=== PATIENT | male | born 1995 | race Caucasian/White ===

== ENCOUNTER 2017-11-15 08:06 | Emergency (ER) | payer OTHER ==
[2017-11-15 08:11] VITALS: RESP 18
--- NOTE | 2017-11-15 09:05 | XR ---
Left shoulder HISTORY: Trauma and pain 3 views of the left shoulder Bone mineralization, joint spaces and alignment are maintained. IMPRESSION: No fracture or dislocation. Follow-up as indicated.
--- NOTE | 2017-11-15 09:33 | ED ---
Upper Extremity HPI - General Chief Complaint: Extremity Injury, Upper Stated Complaint: Arm Injury Time Seen by Provider: 11/15/17 08:15 Source: patient, RN notes reviewed, old records reviewed Mode of arrival: ambulatory Limitations: no limitations - History of Present Illness Initial Comments: Patient is a 22-year-old male chief complaint of left shoulder injury. Pt slipped down approx 6 steps this morning and injured left shoulder while trying to catch himself. Denies any head or neck injury. He states that his back is OK and reports no significant pain. Patient reports pain with range of motion of the left shoulder. Denies peripheral paresthesias. - Related Data Home Medications Medication Instructions Recorded Confirmed Escitalopram [Lexapro] 10 mg PO DAILY 11/15/17 11/15/17 QUEtiapine [SEROquel] 50 mg PO HS 11/15/17 11/15/17 Previous Rx's Medication Instructions Recorded Ibuprofen [Motrin] 600 mg PO Q8HR PRN #20 tab 11/15/17 traMADol HCl [Ultram] 50 mg PO Q6HR PRN 3 Days #12 tab 11/15/17 Allergies Allergy/AdvReac Type Severity Reaction Status Date / Time No Known Allergies Allergy Verified 11/23/17 07:42 Review of Systems ROS Statement: Those systems with pertinent positive or pertinent negative responses have been documented in the HPI. ROS Other: All systems not noted in ROS Statement are negative. Past Medical History Past Medical History: No Reported History History of Any Multi-Drug Resistant Organisms: None Reported Past Surgical History: No Surgical Hx Reported Past Psychological History: Depression Smoking Status: Current every day smoker Past Alcohol Use History: None Reported Past Drug Use History: None Reported General Exam - General Exam Comments Initial Comments: This patient is a 22 year old male, no distress. Limitations: no limitations General appearance: alert, in no apparent distress Head exam: Present: atraumatic, normocephalic, normal inspection Eye exam: Present: normal appearance, PERRL, EOMI. Absent: scleral icterus, conjunctival injection, periorbital swelling ENT exam: Present: normal exam, mucous membranes moist Neck exam: Present: normal inspection. Absent: tenderness, meningismus, lymphadenopathy Respiratory exam: Present: normal lung sounds bilaterally. Absent: respiratory distress, wheezes, rales, rhonchi, stridor Cardiovascular Exam: Present: regular rate, normal rhythm, normal heart sounds. Absent: systolic murmur, diastolic murmur, rubs, gallop, clicks GI/Abdominal exam: Present: soft, normal bowel sounds. Absent: distended, tenderness, guarding, rebound, rigid Extremities exam: Present: normal inspection, normal capillary refill. Absent: tenderness, pedal edema, joint swelling, calf tenderness Left Shoulder Exam: Present: tenderness (Patient unable to abduct greaterthan 45 degrees and flex greater than 90 degrees. ), tenderness over AC joint. Absent: normal inspection, full ROM, abrasion, laceration Upper Arm exam: Present: normal inspection, full ROM Elbow exam: Present: normal inspection, full ROM Forearm Wrist exam: Present: normal inspection Hand Wrist exam: Present: normal inspection Neuro motor exam: Present: wrist extension intact Vascular: Present: vascular compromise Back exam: Present: normal inspection Neurological exam: Present: alert, oriented X3, CN II-XII intact Psychiatric exam: Present: normal affect, normal mood Skin exam: Present: warm, dry, intact, normal color. Absent: rash Course Vital Signs 11/15/17 11/15/17 08:08 09:34 Temperature 97.7 F 98 F Pulse Rate 95 84 Respiratory 18 18 Rate Blood Pressure 141/78 137/70 O2 Sat by Pulse 99 100 Oximetry Procedures - Orthopedic Splinting/Casting Injury #1 Side: left Upper Extremity Injury Location: shoulder Upper Extremity Immobilizer: sling/shoulder immobilizer Additional Comments: Patient is N/V intact. Medical Decision Making - Medical Decision Making Or pain after falling down the stairs. No other injury. X-ray shows no fracture. He does have limited range of motion. Concern for rotator cuff injury. Patient placed in a sling and pain medicine. Discussed appropriate follow up with orthopedic. - Radiology Data Radiology results: report reviewed Normal left shoulder xrays. Disposition Clinical Impression: Injury of left rotator cuff Disposition: HOME SELF-CARE Condition: Good Instructions: Rotator Cuff Injury (ED) Additional Instructions: Patient denies follow-up with primary care provider and safety specialist. Patient should remain in the sling to practice some range of motion to avoid frozen shoulder syndrome. Patient can take the pain medicine and anti- inflammatory medicine as prescribed. Recommended follow-up with orthopedic. Prescriptions: Ibuprofen [Motrin] 600 mg PO Q8HR PRN #20 tab PRN Reason: Pain traMADol HCl [Ultram] 50 mg PO Q6HR PRN 3 Days #12 tab PRN Reason: Pain Is patient prescribed a controlled substance at d/c from ED?: No When asked, does pt state using other controlled substances?: No If prescribed controlled substance>3 days was MAPS reviewed?: No Referrals: None,Stated [Primary Care Provider] - 1-2 days Randi Perez MD [REFERRING] - 1-2 days Jorge Merritt DO [Doctor of Osteopathic Medicine] - 1-2 days Time of Disposition: 09:31
[2017-11-15 09:40] VITALS: BP 137/70; PULSE 84; TEMP 98
== END 2017-11-15 09:35 | disposition home or self-care (01) ==
LOC: EC 08:06
DX: S46.002A Unspecified injury of muscle(s) and tendon(s) of the rotator cuff of left shoulder, initial encounter (principal); F32.9 Major depressive disorder, single episode, unspecified; F17.200 Nicotine dependence, unspecified, uncomplicated; Z79.899 Other long term (current) drug therapy; W10.9XXA Fall (on) (from) unspecified stairs and steps, initial encounter; Y92.009 Unspecified place in unspecified non-institutional (private) residence as the place of occurrence of the external cause
CPT/HCPCS: 99284

== ENCOUNTER 2017-11-23 07:39 | Emergency (ER) | payer OTHER ==
[2017-11-23 07:42] VITALS: BP 134/80; PULSE 102; RESP 20; TEMP 98
--- NOTE | 2017-11-23 08:36 | ED ---
Medical Clearance HPI - General Chief complaint: Medical Clearance Stated complaint: Shoulder Recheck Time Seen by Provider: 11/23/17 08:14 Source: patient, RN notes reviewed Mode of arrival: ambulatory - History of Present Illness Initial comments: Patient 22-year-old male presented to the emergency room today with a chief complaint of needing a work note to return to work. He does not that he was seen in the emergency room approximately week ago for an injury to the left shoulder. States is feeling better. States his family doctors out of town he still plans to follow up with him. He states he needs a note to return to work tomorrow. Patient denies any other bites or symptoms. Home medications: Home Medications Medication Instructions Recorded Confirmed Escitalopram [Lexapro] 10 mg PO DAILY 11/15/17 11/15/17 QUEtiapine [SEROquel] 50 mg PO HS 11/15/17 11/15/17 Previous Rx's Medication Instructions Recorded Ibuprofen [Motrin] 600 mg PO Q8HR PRN #20 tab 11/15/17 traMADol HCl [Ultram] 50 mg PO Q6HR PRN 3 Days #12 tab 11/15/17 Allergies/Adverse reactions: Allergies Allergy/AdvReac Type Severity Reaction Status Date / Time No Known Allergies Allergy Verified 11/23/17 07:42 Review of Systems ROS Statement: Those systems with pertinent positive or pertinent negative responses have been documented in the HPI. ROS Other: All systems not noted in ROS Statement are negative. Past Medical History Past Medical History: No Reported History History of Any Multi-Drug Resistant Organisms: None Reported Past Surgical History: No Surgical Hx Reported Past Psychological History: Depression Smoking Status: Current every day smoker Past Alcohol Use History: None Reported Past Drug Use History: None Reported General Exam - General Exam Comments Initial Comments: General: The patient is awake and alert, in no distress, and does not appear acutely ill. Neck: The neck is supple, there is no tenderness or JVD. Musculoskeletal: Normal appearance of the left shoulder. Full range motion. Sensation intact. Pulses equal bilaterally 2+. Strength 5/5 in all areas. Neurological: A&O x 3. CN II-XII intact, There are no obvious motor or sensory deficits. Coordination appears grossly intact. Speech is normal. Skin: Skin is warm and dry and no rashes or lesions are noted. Psychiatric: Normal mood and affect. Limitations: no limitations Course Vital Signs 11/23/17 07:41 Temperature 98.0 F Pulse Rate 102 H Respiratory 20 Rate Blood Pressure 134/80 O2 Sat by Pulse 99 Oximetry Medical Decision Making - Medical Decision Making Patient does continue to follow-up with family doctor and orthopedics as needed. Disposition Clinical Impression: Shoulder injury Disposition: HOME SELF-CARE Condition: Good Instructions: Rotator Cuff Injury (ED) Additional Instructions: Please continue to follow-up family doctor and orthopedics as discussed. Please return to emergency room for any other concerns Is patient prescribed a controlled substance at d/c from ED?: No Referrals: Bhargav Gonzales DO [Primary Care Provider] - 1-2 days Time of Disposition: 08:35
== END 2017-11-23 08:47 | disposition home or self-care (01) ==
LOC: EC 07:39
DX: S49.92XD Unspecified injury of left shoulder and upper arm, subsequent encounter (principal); F32.9 Major depressive disorder, single episode, unspecified; F17.200 Nicotine dependence, unspecified, uncomplicated; Z79.899 Other long term (current) drug therapy
CPT/HCPCS: 99282

== ENCOUNTER 2018-05-16 20:53 | Emergency (ER) | payer OTHER ==
[2018-05-16 21:03] VITALS: BP 143/89; PULSE 80; RESP 18; TEMP 98.6
--- NOTE | 2018-05-16 22:48 | XR ---
EXAMINATION TYPE: XR chest 2V DATE OF EXAM: 05/16/2018 COMPARISON: NONE HISTORY: Chest pain TECHNIQUE: Frontal and lateral views of the chest are obtained. FINDINGS: Heart and mediastinum are normal. Lungs are clear. Diaphragm is normal. Bony thorax appear s normal. IMPRESSION: Normal chest
[2018-05-16] MEDS ORDERED: ASPIRIN 81 MG PO STA (23:47)
--- NOTE | 2018-05-16 23:49 | ED ---
General Adult HPI - General Chief complaint: Chest Pain Stated complaint: Mental Health Source: patient Mode of arrival: EMS Limitations: no limitations - History of Present Illness Initial comments: Dictation was produced using [employer] dictation software. please excuse any grammatical, word or spelling errors. Chief Complaint: 22-year-old male past medical history tobacco abuse and family history of cardiac disease presents with 10 minute episode of chest pain. History of Present Illness: Patient is 22-year-old male who was leaving work when he was at his car. He did experience a acute episode of substernal left- sided chest pain. There was associated diaphoresis. Patient states the pain did radiate slightly to his left shoulder and intrascapular area. Patient states the pain was severe and lasted for only 10 minutes and then completely subsided. He was concerned he is having a heart attack. He called EMS transferred to the emergency department. The ROS documented in this emergency department record has been reviewed and confirmed by me. Those systems with pertinent positive or negative responses have been documented in the HPI. All other systems are other negative and/or noncontributory. - Related Data Home Medications Medication Instructions Recorded Confirmed Escitalopram [Lexapro] 10 mg PO DAILY 11/15/17 05/16/18 QUEtiapine [SEROquel] 50 mg PO HS 11/15/17 05/16/18 QUEtiapine FUMARATE [SEROquel] 75 mg PO HS 05/16/18 05/16/18 Allergies Allergy/AdvReac Type Severity Reaction Status Date / Time No Known Allergies Allergy Verified 11/23/17 07:42 Review of Systems ROS Statement: Those systems with pertinent positive or pertinent negative responses have been documented in the HPI. ROS Other: All systems not noted in ROS Statement are negative. Past Medical History Past Medical History: No Reported History History of Any Multi-Drug Resistant Organisms: None Reported Past Surgical History: No Surgical Hx Reported Past Psychological History: Depression Smoking Status: Current every day smoker Past Alcohol Use History: None Reported Past Drug Use History: None Reported General Exam - General Exam Comments Initial Comments: PHYSICAL EXAM: General Impression: Alert and oriented x3, not in acute distress HEENT: Normocephalic atraumatic, extra-ocular movements intact, pupils equal and reactive to light bilaterally, mucous membranes moist. Cardiovascular: Heart regular rate and rhythm, S1&S2 audible, no murmurs, rubs or gallops Chest: Lungs clear to auscultation bilaterally, no rhonchi, no wheeze, no rales Abdomen: Bowel sounds present, abdomen soft, non-tender, non-distended, no organomegaly Musculoskeletal: Pulses present and equal in all extremities, no peripheral edema Motor: Power 5/5 bilaterally, no focal deficits noted Neurological: CN II-XII grossly intact, no focal motor or sensory deficits noted Skin: Intact with no visualized rashes Psych: Normal affect and mood Limitations: no limitations Course Vital Signs 05/16/18 20:59 Temperature 98.6 F Pulse Rate 80 Respiratory 18 Rate Blood Pressure 143/89 O2 Sat by Pulse 98 Oximetry Medical Decision Making - Medical Decision Making ED course: 22 y Old male with chief complaint of chest pain. Vital signs upon arrival are within acceptable limits. Physical examination is benign. Patient is well-appearing. EKGs benign however there are nonspecific findings. Pain is slightly reproducible with palpation to his left anterior chest. EKG did not show any signs to suggest acute coronary syndrome. Chest x-ray is unremarkable. At this point. Low clinical suspicion of acute coronary syndrome. Patient is mild risk. Told to follow up with primary care physician upon discharge. Patient given aspirin. Patient told to return if there is any worsening symptoms. Cardiac enzymes are negative. EKG Interpretation: A 12 lead EKG was obtained. It was interpreted by myself and attending physician. There is a P wave before every QRS complex. Rate is 76. Rhythm is normal sinus rhythm, HI interval 134, QS 96, QTC 450. QT is not prolonged. No ST segment depression or elevation. There are nonspecific T-wave changes in 3 and aVF.. Overall, this EKG is unremarkable - Lab Data Lab Results 05/16/18 Range/Units 22:45 Troponin I <0.012 (0.000-0.034) ng/mL Disposition Clinical Impression: Chest pain Disposition: HOME SELF-CARE Condition: Good Instructions: Chest Pain (ED) Is patient prescribed a controlled substance at d/c from ED?: No Referrals: Bhargav Gonzales DO [Primary Care Provider] - 1-2 days Time of Disposition: 23:48
[2018-05-16 23:58] LABS: Basophils % (A) 0 %; Eosinophils # (A) 0.1 k/uL (0-0.7); Eosinophils % (A) 2 %; HCT 46.6 % (39.0-53.0); HGB 16.1 gm/dL (13.0-17.5); Lymphocytes # (A) 3.4 k/uL (1.0-4.8); Lymphocytes % (A) 41 %; MCH 31.6 pg (25.0-35.0); MCHC 34.6 g/dL (31.0-37.0); MCV 91.5 fL (80.0-100.0); Monocytes # (A) 0.3 k/uL (0-1.0); Monocytes % (A) 4 %; Neutrophils # (A) 4.3 k/uL (1.3-7.7); Neutrophils % (A) 51 %; Platelet Count 186 k/uL (150-450); RBC 5.09 m/uL (4.30-5.90); RDW 12.9 % (11.5-15.5); WBC 8.4 k/uL (3.8-10.6)
== END 2018-05-16 23:57 | disposition home or self-care (01) ==
LOC: EC 20:53
DX: R07.9 Chest pain, unspecified (principal); F32.9 Major depressive disorder, single episode, unspecified; F17.200 Nicotine dependence, unspecified, uncomplicated; Z79.899 Other long term (current) drug therapy
CPT/HCPCS: 36415; 71046; 84484; 85025; 93005; 99285

== ENCOUNTER 2018-10-07 17:45 | Emergency (ER) | payer OTHER ==
[2018-10-07 17:59] LABS: Glucose,Whole Blood 318 mg/dL (75-99)
[2018-10-07] MEDS ORDERED: SODIUM CHLORIDE 0.9% 500 ML 500 ML IV STA (17:59)
[2018-10-07] MEDS ORDERED: SODIUM CHLORIDE 0.9% 1,000 ML IV STA ×2 (17:59)
--- NOTE | 2018-10-07 18:06 | ED ---
Recheck HPI - General Chief Complaint: Recheck/Abnormal Lab/Rx Stated Complaint: ABNORMAL LABS Time Seen by Provider: 10/07/18 17:58 Source: patient, RN notes reviewed, old records reviewed Mode of arrival: ambulatory Limitations: no limitations - History of Present Illness Initial Comments: This is a 23-year-old male the ER for evaluation. Patient resents today for evaluation regarding abnormal lab tests. Patient's son have abnormal blood sugar. Elevated blood sugar. Patient denies any symptoms of thirst or increased urination. Denies any pain no shortness breath or chest pain no bowel pain. No recent change in medications he does admit to some recent nausea no vomiting with diarrhea Complaint: abnormal lab (Elevated blood sugar) -: unknown Returns Today for: Called Because of Abnormal Lab/Test Symptoms Since Prior Visit: no new symptoms Context: called for abnormal lab result Associated Symptoms: none - Related Data Home Medications Medication Instructions Recorded Confirmed Escitalopram [Lexapro] 10 mg PO HS 11/15/17 10/07/18 QUEtiapine [SEROquel] 50 mg PO HS 11/15/17 10/07/18 QUEtiapine FUMARATE [SEROquel] 75 mg PO HS 05/16/18 10/07/18 Previous Rx's Medication Instructions Recorded metFORMIN HCL [Glucophage] 500 mg PO BID #60 tab 10/07/18 Allergies Allergy/AdvReac Type Severity Reaction Status Date / Time No Known Allergies Allergy Verified 10/07/18 18:07 Review of Systems ROS Statement: Those systems with pertinent positive or pertinent negative responses have been documented in the HPI. ROS Other: All systems not noted in ROS Statement are negative. Past Medical History Past Medical History: No Reported History History of Any Multi-Drug Resistant Organisms: None Reported Past Surgical History: No Surgical Hx Reported Past Psychological History: Anxiety, Depression Smoking Status: Current every day smoker Past Alcohol Use History: None Reported Past Drug Use History: None Reported General Exam Limitations: no limitations General appearance: alert, in no apparent distress Head exam: Present: atraumatic, normocephalic, normal inspection Eye exam: Present: normal appearance, PERRL, EOMI. Absent: scleral icterus, conjunctival injection, periorbital swelling ENT exam: Present: normal exam, mucous membranes moist Neck exam: Present: normal inspection. Absent: tenderness, meningismus, lymphadenopathy Respiratory exam: Present: normal lung sounds bilaterally. Absent: respiratory distress, wheezes, rales, rhonchi, stridor Cardiovascular Exam: Present: regular rate, normal rhythm, normal heart sounds. Absent: systolic murmur, diastolic murmur, rubs, gallop, clicks GI/Abdominal exam: Present: soft, normal bowel sounds. Absent: distended, tenderness, guarding, rebound, rigid Extremities exam: Present: normal inspection, full ROM, normal capillary refill. Absent: tenderness, pedal edema, joint swelling, calf tenderness Back exam: Present: normal inspection Neurological exam: Present: alert, oriented X3, CN II-XII intact Psychiatric exam: Present: normal affect, normal mood Skin exam: Present: warm, dry, intact, normal color. Absent: rash Course Vital Signs 10/07/18 17:50 Temperature 99.0 F Pulse Rate 98 Respiratory 18 Rate Blood Pressure 150/94 O2 Sat by Pulse 96 Oximetry - Reevaluation(s) Reevaluation #1: 10/07/18 18:32 Medical record reviewed Reevaluation #2: 10/07/18 19:14 no acute distress, drinking appropriately. Encouraged to increase fluid intake Medical Decision Making - Medical Decision Making 23 male the ER for evaluation. Diagnoses diabetes high blood pressure. given adequate resuscitation here in the ER, to be discharged home to follow-up with primary care - Lab Data Result diagrams: 10/07/18 18:11 10/07/18 18:11 Lab Results 10/07/18 10/07/18 10/07/18 Range/Units 17:56 18:11 18:11 WBC 5.1 (3.8-10.6) k/uL RBC 4.92 (4.30-5.90) m/uL Hgb 15.2 (13.0-17.5) gm/dL Hct 44.6 (39.0-53.0) % MCV 90.5 (80.0-100.0) fL MCH 30.9 (25.0-35.0) pg MCHC 34.1 (31.0-37.0) g/dL RDW 14.4 (11.5-15.5) % Plt Count 174 (150-450) k/uL Neutrophils % 51 % Lymphocytes % 40 % Monocytes % 4 % Eosinophils % 3 % Basophils % 0 % Neutrophils # 2.6 (1.3-7.7) k/uL Lymphocytes # 2.1 (1.0-4.8) k/uL Monocytes # 0.2 (0-1.0) k/uL Eosinophils # 0.1 (0-0.7) k/uL Basophils # 0.0 (0-0.2) k/uL Sodium 139 (137-145) mmol/L Potassium 4.5 (3.5-5.1) mmol/L Chloride 107 (98-107) mmol/L Carbon Dioxide 23 (22-30) mmol/L Anion Gap 9 mmol/L BUN 12 (9-20) mg/dL Creatinine 0.43 L (0.66-1.25) mg/dL Est GFR (CKD-EPI)AfAm >90 (>60 ml/min/1.73 sqM) Est GFR (CKD-EPI)NonAf >90 (>60 ml/min/1.73 sqM) Glucose 320 H (74-99) mg/dL POC Glucose (mg/dL) 318 H (75-99) mg/dL POC Glu [employer] ID Dharmesh Zhou Calcium 9.8 (8.4-10.2) mg/dL Phosphorus 2.8 (2.5-4.5) mg/dL Magnesium 1.8 (1.6-2.3) mg/dL Total Bilirubin 0.6 (0.2-1.3) mg/dL AST 46 (17-59) U/L ALT 87 H (21-72) U/L Alkaline Phosphatase 46 (38-126) U/L Total Protein 7.1 (6.3-8.2) g/dL Albumin 4.3 (3.5-5.0) g/dL Urine Color Urine Appearance (Clear) Urine pH (5.0-8.0) Ur Specific [place] (1.001-1.035) Urine Protein (Negative) Urine Glucose (UA) (Negative) Urine Ketones (Negative) Urine Blood (Negative) Urine Nitrite (Negative) Urine Bilirubin (Negative) Urine Urobilinogen (<2.0) mg/dL Ur Leukocyte Esterase (Negative) Acetone, Qual Negative (Negative) 10/07/18 Range/Units 18:11 WBC (3.8-10.6) k/uL RBC (4.30-5.90) m/uL Hgb (13.0-17.5) gm/dL Hct (39.0-53.0) % MCV (80.0-100.0) fL MCH (25.0-35.0) pg MCHC (31.0-37.0) g/dL RDW (11.5-15.5) % Plt Count (150-450) k/uL Neutrophils % % Lymphocytes % % Monocytes % % Eosinophils % % Basophils % % Neutrophils # (1.3-7.7) k/uL Lymphocytes # (1.0-4.8) k/uL Monocytes # (0-1.0) k/uL Eosinophils # (0-0.7) k/uL Basophils # (0-0.2) k/uL Sodium (137-145) mmol/L Potassium (3.5-5.1) mmol/L Chloride (98-107) mmol/L Carbon Dioxide (22-30) mmol/L Anion Gap mmol/L BUN (9-20) mg/dL Creatinine (0.66-1.25) mg/dL Est GFR (CKD-EPI)AfAm (>60 ml/min/1.73 sqM) Est GFR (CKD-EPI)NonAf (>60 ml/min/1.73 sqM) Glucose (74-99) mg/dL POC Glucose (mg/dL) (75-99) mg/dL POC Glu [employer]ter ID Calcium (8.4-10.2) mg/dL Phosphorus (2.5-4.5) mg/dL Magnesium (1.6-2.3) mg/dL Total Bilirubin (0.2-1.3) mg/dL AST (17-59) U/L ALT (21-72) U/L Alkaline Phosphatase (38-126) U/L Total Protein (6.3-8.2) g/dL Albumin (3.5-5.0) g/dL Urine Color Light Yellow Urine Appearance Clear (Clear) Urine pH 6.5 (5.0-8.0) Ur Specific [place] 1.025 (1.001-1.035) Urine Protein Negative (Negative) Urine Glucose (UA) 4+ H (Negative) Urine Ketones Negative (Negative) Urine Blood Negative (Negative) Urine Nitrite Negative (Negative) Urine Bilirubin Negative (Negative) Urine Urobilinogen <2.0 (<2.0) mg/dL Ur Leukocyte Esterase Negative (Negative) Acetone, Qual (Negative) - EKG Data -: EKG Interpreted by Me (EKG shows normal sinus rhythm rate of 90, MO 140, QRS 06, QTc 427) Disposition Clinical Impression: Newly diagnosed diabetes, Hyperglycemia Disposition: HOME SELF-CARE Condition: Good Instructions (If sedation given, give patient instructions): Type 2 Diabetes in Adults: New Diagnosis (ED) Prescriptions: metFORMIN HCL [Glucophage] 500 mg PO BID #60 tab Is patient prescribed a controlled substance at d/c from ED?: No Referrals: Bhargav Gonzales DO [Primary Care Provider] - 1-2 days
[2018-10-07 18:23] LABS: Basophils % (A) 0 %; Eosinophils # (A) 0.1 k/uL (0-0.7); Eosinophils % (A) 3 %; HCT 44.6 % (39.0-53.0); HGB 15.2 gm/dL (13.0-17.5); Lymphocytes # (A) 2.1 k/uL (1.0-4.8); Lymphocytes % (A) 40 %; MCH 30.9 pg (25.0-35.0); MCHC 34.1 g/dL (31.0-37.0); MCV 90.5 fL (80.0-100.0); Mean Platelet Volume 8.3; Monocytes # (A) 0.2 k/uL (0-1.0); Monocytes % (A) 4 %; Neutrophils # (A) 2.6 k/uL (1.3-7.7); Neutrophils % (A) 51 %; Platelet Count 174 k/uL (150-450); RBC 4.92 m/uL (4.30-5.90); RDW 14.4 % (11.5-15.5); WBC 5.1 k/uL (3.8-10.6)
[2018-10-07 18:27] LABS: Appearance,Urine Clear (Clear); Bilirubin,Urine Negative (Negative); Blood,Urine Negative (Negative); Color,Urine Light Yellow; Glucose,Urine (UA) 4+ (Negative); Ketones,Urine Negative (Negative); Leukocyte Esterase,Urine Negative (Negative); Nitrite,Urine Negative (Negative); PH, Urine 6.5 (5.0-8.0); Protein,Urine Negative (Negative); Specific Gravity,Urine 1.025 (1.001-1.035); Urobilinogen,Urine <2.0 mg/dL (<2.0)
[2018-10-07 19:00] LABS: ALT 87 U/L (21-72); AST 46 U/L (17-59); Albumin 4.3 g/dL (3.5-5.0); Alkaline Phosphatase 46 U/L (38-126); Anion Gap 9 mmol/L; Blood Urea Nitrogen 12 mg/dL (9-20); Calcium 9.8 mg/dL (8.4-10.2); Carbon Dioxide 23 mmol/L (22-30); Chloride 107 mmol/L (98-107); Glucose 320 mg/dL (74-99); Magnesium 1.8 mg/dL (1.6-2.3); Phosphorus 2.8 mg/dL (2.5-4.5); Potassium 4.5 mmol/L (3.5-5.1); Sodium 139 mmol/L (137-145); Total Bilirubin 0.6 mg/dL (0.2-1.3); Total Protein 7.1 g/dL (6.3-8.2)
[2018-10-07] MEDS ORDERED: metFORMIN 500 MG TAB PO STA (19:12)
[2018-10-07 20:23] VITALS: BP 121/85; PULSE 90; RESP 19; TEMP 98.3
== END 2018-10-07 20:22 | disposition home or self-care (01) ==
LOC: EC 17:45
DX: E11.65 Type 2 diabetes mellitus with hyperglycemia (principal); F32.9 Major depressive disorder, single episode, unspecified; F41.9 Anxiety disorder, unspecified; F17.200 Nicotine dependence, unspecified, uncomplicated; Z79.899 Other long term (current) drug therapy
CPT/HCPCS: 36415; 80053; 81003; 82009; 83036; 83735; 84100; 85025; 87086; 93005; 99284

== ENCOUNTER 2022-03-16 15:28 | Emergency (ER) | payer OTHER ==
[2022-03-16 15:39] VITALS: TEMP 98.4
--- NOTE | 2022-03-16 18:18 | ED ---
URI HPI - General Chief Complaint: Upper Respiratory Infection Stated Complaint: Body Aches,NVD,Dizzy Time Seen by Provider: 03/16/22 18:02 Source: patient Mode of arrival: ambulatory Limitations: no limitations - History of Present Illness Initial Comments: This 26-year-old male present with a complaint of a cough as well as some myalgias and fatigue. He denies any fevers or chills. He said some minor nasal congestion. He has slight headache. He denies any other complaints or modifying factors. Symptoms severity is moderate. He does utilize tobacco and has occasional cough but he states that it is somewhat worse currently. He denies any degree of production. He has occasional sore throat. No other complaints or modifying factor. - Related Data Home Medications Medication Instructions Recorded Confirmed Escitalopram [Lexapro] 10 mg PO HS 11/15/17 10/07/18 QUEtiapine [SEROquel] 50 mg PO HS 11/15/17 10/07/18 QUEtiapine FUMARATE [SEROquel] 75 mg PO HS 05/16/18 10/07/18 Previous Rx's Medication Instructions Recorded metFORMIN HCL [Glucophage] 500 mg PO BID #60 tab 10/07/18 Albuterol Sulfate [Albuterol 2 puff INHALATION Q4H PRN #8.5 gm 03/16/22 Sulfate Hfa] Azithromycin [Zithromax Z Pack] 1 tab PO DIRECTED #6 tab 03/16/22 predniSONE [Deltasone] 20 mg PO BID #10 tab 03/16/22 Allergies Allergy/AdvReac Type Severity Reaction Status Date / Time No Known Allergies Allergy Verified 03/16/22 15:39 Review of Systems ROS Statement: Those systems with pertinent positive or pertinent negative responses have been documented in the HPI. ROS Other: All systems not noted in ROS Statement are negative. Past Medical History Past Medical History: No Reported History History of Any Multi-Drug Resistant Organisms: None Reported Past Surgical History: No Surgical Hx Reported Past Psychological History: Anxiety, Depression Smoking Status: Current every day smoker Past Alcohol Use History: None Reported Past Drug Use History: None Reported General Exam - General Exam Comments Initial Comments: GENERAL: The patient is well nourished and well hydrated. VITAL SIGNS: Heart rate, blood pressure, respiratory rate reviewed as recorded in nurse's notes. EYES: Pupils are round and reactive. Extraocular movements are intact. No conjunctival / lid redness or swelling. ENT: No external evidence of injury, swelling, or ecchymosis. Airway is patent. Throat is clear. NECK: Nontender. No swelling or evidence of injury. No subcutaneous emphysema. Trachea is midline. No thyroid mass. HEART: Regular rate and rhythm. Good peripheral pulses. LUNGS/CHEST: Mild wheezing noted bilaterally. No ecchymosis, subcutaneous emphysema, or tenderness. ABDOMEN: Abdomen soft without tenderness. No palpable masses or organomegaly. No peritoneal signs. No abdominal wall swelling or ecchymosis. EXTREMITIES: No extremity tenderness. Normal muscle tone and function. No thoracolumbar tenderness. NEUROLOGIC: Sensation is grossly intact. Cranial nerve exam reveals face is symmetrical, tongue is midline, speech is clear. SKIN: No abrasions or ecchymosis is noted. No induration or masses noted. PSYCHIATRIC: Alert and oriented. Appropriate behavior and judgment. Limitations: no limitations Course Vital Signs 03/16/22 03/16/22 15:36 18:28 Temperature 98.4 F Pulse Rate 106 H 95 Respiratory 22 20 Rate Blood Pressure 142/93 131/89 O2 Sat by Pulse 99 98 Oximetry Medical Decision Making - Medical Decision Making The patient was seen and examined. His COVID-19 test is negative. He does have a degree of bronchospasm. It is felt as though he may have a degree of bronchitis. Antibiotics, steroids, and albuterol inhaler prescribed. Tylenol Motrin recommended. Return parameters are discussed. Close Follow-up recommended. - Lab Data Lab Results 03/16/22 Range/Units 15:43 Coronavirus (PCR) Not Detected (Not Detectd) Disposition Clinical Impression: Bronchitis, Bronchospasm, Tobacco abuse Disposition: HOME SELF-CARE Condition: Fair Instructions (If sedation given, give patient instructions): Acute Bronchitis (ED) Prescriptions: Albuterol Sulfate [Albuterol Sulfate Hfa] 2 puff INHALATION Q4H PRN #8.5 gm PRN Reason: Cough predniSONE [Deltasone] 20 mg PO BID #10 tab Azithromycin [Zithromax Z Pack] 1 tab PO DIRECTED #6 tab Is patient prescribed a controlled substance at d/c from ED?: No Referrals: Bhargav Gonzales DO [Primary Care Provider] - 1-2 days Time of Disposition: 18:17
[2022-03-16 18:33] VITALS: BP 131/89; PULSE 95; RESP 20
== END 2022-03-16 18:29 | disposition home or self-care (01) ==
LOC: EC 15:28
DX: J40 Bronchitis, not specified as acute or chronic (principal); J98.01 Acute bronchospasm; F32.A Depression, unspecified; F41.9 Anxiety disorder, unspecified; F17.200 Nicotine dependence, unspecified, uncomplicated; F17.210 Nicotine dependence, cigarettes, uncomplicated; Z20.822 Contact with and (suspected) exposure to COVID-19
CPT/HCPCS: 87635; 99283; 99284

== ENCOUNTER 2022-04-22 12:48 | Emergency (ER) | payer OTHER ==
[2022-04-22 12:55] VITALS: BP 127/80; PULSE 70; RESP 16; TEMP 97.9
--- NOTE | 2022-04-22 13:40 | XR ---
EXAMINATION TYPE: XR chest 2V DATE OF EXAM: 04/22/2022 COMPARISON: Chest x-ray May 16, 2018. HISTORY: Cough and shortness of breath TECHNIQUE: Frontal and lateral views of the chest are obtained. FINDINGS: There is no suspicious focal air space opacity, pleural effusion, or pneumothorax seen. T he cardiac silhouette size is stable and within normal limits. The osseous structures are intact. IMPRESSION: No acute process. No significant change from prior.
--- NOTE | 2022-04-22 14:02 | ED ---
URI HPI - General Chief Complaint: Upper Respiratory Infection Stated Complaint: possible bronchitis Time Seen by Provider: 04/22/22 13:01 Source: patient, RN notes reviewed Mode of arrival: ambulatory Limitations: no limitations - History of Present Illness Initial Comments: This is a 26-year-old male who presents to the emergency department for coughing and congestion. States that the symptoms have been present for 2 weeks. He has associated low-grade fevers, body aches, and fatigue. He was initially given a prescription for antibiotics when his symptoms began, however he was unable to pick them up because he did not have a car at that time. Denies any fevers or sick contacts. Denies any fevers, chills, sore throat, dyspnea, chest pain, palpitations, abdominal pain, nausea, vomiting, diarrhea, or back pain. MD Complaint: fever, cough, nasal congestion Onset/Timin -: week(s) Associated Symptoms: myalgias - Related Data Home Medications Medication Instructions Recorded Confirmed Escitalopram [Lexapro] 10 mg PO HS 11/15/17 10/07/18 QUEtiapine [SEROquel] 50 mg PO HS 11/15/17 10/07/18 QUEtiapine FUMARATE [SEROquel] 75 mg PO HS 05/16/18 10/07/18 Previous Rx's Medication Instructions Recorded metFORMIN HCL [Glucophage] 500 mg PO BID #60 tab 10/07/18 Albuterol Sulfate [Albuterol 2 puff INHALATION Q4H PRN #8.5 gm 03/16/22 Sulfate Hfa] predniSONE [Deltasone] 20 mg PO BID #10 tab 03/16/22 Albuterol Sulfate [Albuterol 2 puff PO Q6H #8.5 gm 04/22/22 Sulfate Hfa] Azithromycin [Zithromax Z Pack] 1 tab PO DIRECTED #6 tab 04/22/22 Promethazine/Dextromethorphan 5 ml PO Q4-6H PRN #473 ml 04/22/22 [Promethazine-Dm Syrup] predniSONE 50 mg PO Q24H 5 Days #5 tablet 04/22/22 Allergies Allergy/AdvReac Type Severity Reaction Status Date / Time No Known Allergies Allergy Verified 03/16/22 15:39 Review of Systems ROS Statement: Those systems with pertinent positive or pertinent negative responses have been documented in the HPI. ROS Other: All systems not noted in ROS Statement are negative. Past Medical History Past Medical History: No Reported History History of Any Multi-Drug Resistant Organisms: None Reported Past Surgical History: No Surgical Hx Reported Past Psychological History: Anxiety, Depression Smoking Status: Current every day smoker Past Alcohol Use History: None Reported Past Drug Use History: None Reported General Exam Limitations: no limitations General appearance: alert, in no apparent distress Head exam: Present: atraumatic, normocephalic, normal inspection Respiratory exam: Present: normal lung sounds bilaterally. Absent: respiratory distress, wheezes, rales, rhonchi, stridor Cardiovascular Exam: Present: regular rate, normal rhythm, normal heart sounds. Absent: systolic murmur, diastolic murmur, rubs, gallop, clicks Neurological exam: Present: alert, oriented X3, CN II-XII intact Psychiatric exam: Present: normal affect, normal mood Skin exam: Present: warm, dry, intact, normal color. Absent: rash Course Vital Signs 04/22/22 12:52 Temperature 97.9 F Pulse Rate 70 Respiratory 16 Rate Blood Pressure 127/80 O2 Sat by Pulse 98 Oximetry Medical Decision Making - Medical Decision Making This is a 26-year-old male who presents to the emergency department for coughing and congestion. Chest x-ray obtained revealing no acute cardiopulmonary pr ocess. COVID and influenza testing negative. Given that this has been present for 2 weeks, will give the patient a Z-Jose L for any associated bacterial component. Prescription for Ventolin inhaler, Promethazine DM cough syrup, and prednisone provided as well. He is instructed to take the prednisone daily for 5 days and use the Ventolin inhaler every 4-6 hours as needed for difficulty breathing. The cough medication should be taken at night until he knows how it affects him, as it may be sedating. Return precautions reviewed in depth, the patient is instructed to return to the emergency department with any new, worsening, or concerning symptoms. Patient verbalized understanding. This case was discussed in detail with the attending ED physician. Presentation, findings, and treatment plan discussed in detail as well. - Lab Data Lab Results 04/22/22 04/22/22 Range/Units 13:20 13:20 Coronavirus (PCR) Not Detected (Not Detectd) Influenza Type A RNA Not Detected (Not Detectd) Influenza Type B (PCR) Not Detected (Not Detectd) - Radiology Data Radiology results: report reviewed, image reviewed Disposition Clinical Impression: Sinusitis, Bronchitis Disposition: HOME SELF-CARE Instructions (If sedation given, give patient instructions): Sinusitis (ED), Upper Respiratory Infection (ED), Acute Bronchitis (ED) Additional Instructions: Return to the emergency department with any new, worsening, or concerning symptoms. Take the antibiotic as prescribed for 5 days. Take the prednisone daily for 5 days. The inhaler can be used every 4-6 hours as needed for coughing and shortness of breath. The cough medicine can also be used every 4-6 hours, however take your first dose at night as it may be sedating. Prescriptions: Albuterol Sulfate [Albuterol Sulfate Hfa] 2 puff PO Q6H #8.5 gm predniSONE 50 mg PO Q24H 5 Days #5 tablet Promethazine/Dextromethorphan [Promethazine-Dm Syrup] 5 ml PO Q4-6H PRN #473 ml PRN Reason: Cough Azithromycin [Zithromax Z Pack] 1 tab PO DIRECTED #6 tab Is patient prescribed a controlled substance at d/c from ED?: No Referrals: Bhargav Gonzales DO [Primary Care Provider] - 1-2 days
== END 2022-04-22 14:12 | disposition home or self-care (01) ==
LOC: EC 12:48
DX: J32.9 Chronic sinusitis, unspecified (principal); J20.9 Acute bronchitis, unspecified; F17.200 Nicotine dependence, unspecified, uncomplicated; Z20.822 Contact with and (suspected) exposure to COVID-19
CPT/HCPCS: 71046; 87502; 87635; 99283